=== PATIENT | male | born 1950 | race Caucasian/White ===

== ENCOUNTER → 2019-12-28 16:29 | Outpatient (CLI) | payer MEDICARE, SELFPAY ==
--- NOTE | 2019-12-28 16:49 | DI.RAD.S_ITS ---
PROCEDURE: XR LUMBAR SPINE 2-3V INDICATIONS: LOW BACK PAIN TECHNIQUE: 3 views of the lumbar spine were acquired. COMPARISON: None. FINDINGS: Bones: 5 jtg-beo-bbmydob vertebrae are present. There is normal bony alignment. No vertebral body compression fractures. No suspicious bony lesions. Degenerative disc disease is moderately severe along the lumbosacral spine including the thoracolumbar junction, and facet osteoarthritis also is moderately severe and most pronounced over the lower half of the LS spine. Soft tissues: Overlying bowel gas pattern is normal. No suspicious soft tissue calcifications. IMPRESSION: Moderately severe to severe degenerative disc disease and facet osteoarthritis overall. No recent trauma found. Dictated by: Brown Llanes M.D. on 12/28/2019 at 17:38 Approved by: Brown Llanes M.D. on 12/28/2019 at 17:42
== END ==
PROVIDERS: PCP Family Medicine; Referring Provider Physician Assistant; Visit Provider Physician Assistant
DX: M54.5 Low back pain (principal); M51.37 Other intervertebral disc degeneration, lumbosacral region; M51.35 Other intervertebral disc degeneration, thoracolumbar region; M47.817 Spondylosis without myelopathy or radiculopathy, lumbosacral region
CPT/HCPCS: 72100

== ENCOUNTER → 2020-12-29 10:51 | Outpatient (CLI) | payer MEDICARE, SELFPAY ==
--- NOTE | 2020-12-29 | DI.MRI.S_ITS ---
PROCEDURE: MR LUMBAR SPINE WO CON INDICATIONS: Low back pain TECHNIQUE: Noncontrast sagittal T1 spin echo and T2 fast echo, sagittal STIR, axial T1 and T2 fast spin echo through the lumbar spine. In cases with scoliosis, additional coronal T2 fast spin echo may be performed. COMPARISON: [facility], CR, XR LUMBAR SPINE 2-3V, 12/28/2019, 16:53. FINDINGS: Image quality: Excellent. Alignment and Curvature: There is mild L1-L2, L2-L3 and L3-L4 retrolisthesis. There is trace T12-L1 retrolisthesis. Bones: Vestigial 12th ribs noted. Reactive endplate changes noted adjacent to the T12-L1, L1-L2, L2-L3, L3-L4 and L4-L5 discs. No acute vertebral body compression fractures. Spinal Cord: Conus medullaris terminates at the T12 level. Visualized cord demonstrates normal signal and size. Paraspinous Soft Tissues: No paravertebral masses. T12-L1: Loss of disc signal and height. Moderate, diffuse disc bulge. Small right central disc protrusion. Mild narrowing of the central canal. Mild right neural foraminal narrowing. No neural compression. L1-L2: Loss of disc signal and height. Minimal, diffuse disc bulge. Mild bilateral facet hypertrophy. Mild narrowing of the central canal. Mild to moderate bilateral neural foraminal narrowing. No neural compression. L2-L3: Loss of disc signal and height. Mild to moderate diffuse disc bulge. Qygu-jt-cmkcwojm facet hypertrophy. Moderate ligamentum flavum hypertrophy. Severe narrowing of the central canal with compression of the nerve roots of the cauda equina. Moderate right and severe left neural foraminal narrowing with compression of the exiting left L2 nerve root. L3-L4: Loss of disc signal and slight loss of disc height. Moderate, diffuse disc bulge. Xiyb-un-geljmnpe bilateral facet hypertrophy. Severe ligamentum flavum hypertrophy. Severe narrowing of the central canal with compression of the nerve roots of the cauda equina. Moderate right and severe left neural foraminal narrowing with compression of the exiting left L3 nerve root. L4-L5: Loss of disc signal and height. Moderate, diffuse disc bulge. Moderate facet hypertrophy. Moderate ligamentum flavum hypertrophy. Moderate to severe narrowing of the central canal with crowding of the nerve roots of the cauda equina. Severe bilateral neural foraminal narrowing with compression of the exiting L4 nerve roots. L5-S1: Loss of disc signal. Minimal, diffuse disc bulge. Mild bilateral facet hypertrophy. No central stenosis. Mild bilateral neural foraminal narrowing. No neural compression. IMPRESSION: 1. Multilevel degenerative disc disease. 2. Multilevel facet arthropathy. 3. Severe L2-L3 and L3-L4 central canal narrowing with compression of the nerve roots of the cauda equina. Moderate to severe L4-L5 central canal narrowing with crowding of the nerve roots of the cauda equina. 4. Severe bilateral L4-L5 neural foraminal narrowing with compression of the exiting bilateral L4 nerve roots. Severe left L2-L3 and L3-L4 neural foraminal narrowing with compression of the exiting left L2 and L3 nerve roots. Dictated by: Nuzhat Almonte MD, PhD on 12/29/2020 at 15:34 Approved by: Nuzhat Almonte MD, PhD on 12/29/2020 at 15:41
== END ==
PROVIDERS: PCP Family Medicine; Referring Provider Family Medicine; Visit Provider Family Medicine
DX: M54.5 Low back pain (principal); M51.36 Other intervertebral disc degeneration, lumbar region; M47.816 Spondylosis without myelopathy or radiculopathy, lumbar region; M47.817 Spondylosis without myelopathy or radiculopathy, lumbosacral region; M48.061 Spinal stenosis, lumbar region without neurogenic claudication; M48.07 Spinal stenosis, lumbosacral region
CPT/HCPCS: 72148

== ENCOUNTER → 2021-11-30 08:57 | Outpatient (CLI) | payer MEDICARE, SELFPAY ==
[2021-11-30 18:59] LABS: Alanine Aminotransferase 27 IU/L (<50); Albumin Globulin Ratio 1.3 (1.0-2.8); Alkaline Phosphatase 85 U/L (38-126); Aspartate Aminotransferase 48 IU/L (17-59); BUN Creatinine Ratio 16.9 (6-22); Bilirubin Total 0.8 mg/dL (0.2-1.3); Blood Urea Nitrogen 21 mg/dL (9-20); Calcium 9.8 mg/dL (8.4-10.2); Carbon Dioxide 31 mmol/L (22-32); Chloride 103 mmol/L (98-107); Cholesterol 177 mg/dL (140-199); Estimated Glomerular Filt Rate 57.1 mL/min (>60); Globulin 3.1 g/dL (1.7-4.1); Glucose 90 mg/dL (80-110); HDL Cholesterol 45 mg/dL (40-60); HEMOLYSIS 16 (0-50); LDL Cholesterol Calculated 112 mg/dL (<100); Potassium 3.5 mmol/L (3.4-5.1); Sodium 140 mmol/L (137-145); Total Protein 7.1 g/dL (6.3-8.2); Triglycerides 98 mg/dL (35-150)
[2021-11-30 19:09] LABS: Add Manual Diff / Slide Review NO; Basophils Absolute Auto 100 /uL (0-100); Basophils Percent Auto 1.4 % (0-2); Eosinophils Absolute Auto 0 /uL (0-450); Eosinophils Percent Auto 0.8 % (2-4); Hematocrit 47.7 % (41-53); Lymphocytes Absolute Auto 1400 /uL (1100-4500); Mean Corpuscular HGB Conc 33.6 % (30-36); Mean Corpuscular Hemoglobin 29.1 PG (26-34); Mean Corpuscular Volume 86.6 fL (80-100); Monocytes Absolute Auto 700 /uL (0-900); Monocytes Percent Auto 11.5 % (3-14); Neutrophils Absolute Auto 3900 /uL (1500-7000); Neutrophils Percent Auto 63.3 % (50-75); Platelet Count 179 X10^3/uL (150-400); Red Cell Distribution Width 15.1 % (11.6-14.8); White Blood Cell Count 6.1 X10^3/uL (4.5-11.0)
== END ==
PROVIDERS: PCP Physician Assistant; Visit Provider Physician Assistant
DX: I10 Essential (primary) hypertension (principal); N52.9 Male erectile dysfunction, unspecified; Z13.220 Encounter for screening for lipoid disorders
CPT/HCPCS: 80053; 80061; 85025

== ENCOUNTER → 2021-12-07 08:09 | Outpatient (CLI) | payer MEDICARE, SELFPAY ==
[2021-12-08 12:13] LABS: Hepatitis B Surface Antigen NEGATIVE s/c (NEGATIVE)
[2021-12-08 12:33] LABS: HIV 1 & 2 Ab/Ag 4th Gen Combo NEGATIVE (NEGATIVE); Hep C Virus Ab w/Reflex Quant NEGATIVE s/c (NEGATIVE)
== END ==
PROVIDERS: PCP Physician Assistant; Visit Provider Family Medicine
DX: Z77.21 Contact with and (suspected) exposure to potentially hazardous body fluids (principal); W46.1XXA Contact with contaminated hypodermic needle, initial encounter
CPT/HCPCS: 86803; 87340; 87389

== ENCOUNTER → 2023-09-19 15:55 | Outpatient (CLI) | payer MEDICARE, SELFPAY ==
--- NOTE | 2023-09-19 16:11 | DI.RAD.S_ITS ---
PROCEDURE: XR KNEE LT 3V INDICATIONS: left knee pain TECHNIQUE: 3 views of the knee were acquired. COMPARISON: None. FINDINGS: Bones: Typb-si-tfkhxehn degenerative changes, particularly the medial compartment. No acute displaced fracture or dislocation Possible nonacute appearing proximal fibular deformity. Soft tissues: Patellar enthesopathy. Joint effusion. IMPRESSION: Qctb-gf-zxpfzozg degenerative changes. Patellar enthesopathy and joint effusion. If there is high concern for further derangement, consider MRI evaluation. Dictated by: Igor Jarrett M.D. on 09/19/2023 at 17:14 Approved by: Igor Jarrett M.D. on 09/19/2023 at 17:15
== END ==
PROVIDERS: PCP Physician Assistant; Referring Provider Family Medicine; Visit Provider Family Medicine
DX: M25.562 Pain in left knee (principal); M76.9 Unspecified enthesopathy, lower limb, excluding foot; M25.462 Effusion, left knee
CPT/HCPCS: 73562

== ENCOUNTER → 2023-10-20 18:27 | Outpatient (CLI) | payer MEDICARE, SELFPAY ==
--- NOTE | 2023-10-20 | DI.MRI.S_ITS ---
PROCEDURE: MR KNEE LT WO CON INDICATIONS: Unspecified internal derangement of left knee TECHNIQUE: Noncontrast sagittal PD fast spin echo and T2 fast spin echo with fat saturation, sagittal 3-D FLASH with fat saturation; coronal T1 spin echo and PD fast spin echo with fat saturation, and axial PD fast spin echo with fat saturation through the knee. COMPARISON: [facility], CR, XR KNEE LT 3V, 09/19/2023, 16:22. FINDINGS: Image quality: Excellent. Menisci: Medial and lateral meniscal extrusions. There is complex tear of the posterior horn and body of the medial meniscus. There is a 0.5 cm parameniscal cyst adjacent to the posterior horn. There is complex tear of the anterior horn body of the lateral meniscus.. The meniscal root ligaments appear intact. Cruciate ligaments: The posterior cruciate ligament is intact. There is mucoid degeneration of anterior cruciate ligament. Medial structures: There is grade II sprain of proximal medial collateral ligament. The posterior oblique ligament, semimembranosus tendon insertions, oblique popliteal ligament, and meniscocapsular junction appear intact. Visualized portions of the pes anserinus tendons appear normal. No abnormal bursal fluid. Lateral structures: The lateral collateral ligament, long and short heads of the biceps femoris tendon appear intact. The popliteus tendon appears normal; the popliteofibular ligament appears intact. The posterosuperior and anteroinferior popliteomeniscal fascicles appear intact. The arcuate and fabellofibular ligaments appear intact, on either side of the lateral inferior geniculate artery. Iliotibial band appears normal. Anterior structures: The quadriceps and patellar tendons appear intact. Low-grade quadriceps tendinosis and patellar tendinosis. Patellar alignment is normal. No femoral trochlear dysplasia or ventral trochlear prominence. No edema in the infrapatellar fat pad. Bones and cartilage: No displaced fractures. There is prominent marrow edema in the posterior lateral tibial plateau, consistent with bone contusion. Bone contusion is also seen in the medial femoral condyle and medial tibial plateau. There is mild tricompartmental cartilage thinning and fibrillation. Joint space: There is small knee joint effusion. There is a moderate-sized Greene's cyst. Normal appearing synovial plicae are incidentally noted. IMPRESSION: 1. Complex tear of the posterior horn body of the medial meniscus. 2. Complex tear of the anterior horn body of the lateral meniscus. 3. Grade II sprain of MCL. 4. Mucoid degeneration of ACL. 5. Bone contusions involving the medial femoral condyle, medial tibial plateau and lateral tibial plateau. 6. Mild tricompartmental cartilage thinning and fibrillation. 7. Small knee joint effusion. 8. A moderate-sized Greene's cyst. Dictated by: Savage Alvarado M.D. on 10/21/2023 at 8:34 Approved by: Savage Alvarado M.D. on 10/21/2023 at 8:45
== END ==
PROVIDERS: PCP Physician Assistant; Referring Provider Family Medicine; Visit Provider Family Medicine
DX: S83.232A Complex tear of medial meniscus, current injury, left knee, initial encounter (principal); S83.272A Complex tear of lateral meniscus, current injury, left knee, initial encounter; S83.412A Sprain of medial collateral ligament of left knee, initial encounter; S80.02XA Contusion of left knee, initial encounter; M25.462 Effusion, left knee; M71.22 Synovial cyst of popliteal space [Baker], left knee; M23.92 Unspecified internal derangement of left knee
CPT/HCPCS: 73721

== ENCOUNTER → 2023-12-01 11:38 | Outpatient (CLI) | payer MEDICARE, SELFPAY ==
--- NOTE | 2023-12-01 13:15 | DI.MRI.S_ITS ---
PROCEDURE: MR STROKE Pre- and post-contrast brain MRI, non-contrast brain MR angiogram, pre- and postcontrast neck MR angiogram INDICATIONS: Transient cerebral ischemic attack, unspecified TECHNIQUE: Brain: Noncontrast axial T1 spin echo, axial T2 fast spin echo, sagittal and axial FLAIR, coronal T2 fast spin echo, axial gradient echo, axial diffusion and ADC through the brain. After the administration of contrast, axial 3D VIBE of the cranial vasculature and brain. Brain MRA: Non-contrast 3-D time of flight MR angiogram, with multiple ucwaymc-tbsfuoqhy-hcthsgyanf (MIP) reformats performed. Neck MRA: Axial and sagittal TruFISP through the neck. Coronal dynamic MR angiogram during administration of contrast in the arterial and venous phases, with 3-dimenstional kpbcdlh-ivxrjqntx-fhyoarhdps (MIP) reformats constructed from subtraction images. COMPARISON: None. FINDINGS: Image quality: Excellent. BRAIN: CSF spaces: Ventricles are normal in size and shape. Basal cisterns are patent. No extra-axial fluid collections. Brain: No intracranial bleeds or mass effects. Clements-white matter interface is normal. Diffusion weighted images show no acute infarct. Brainstem appears normal. Normal intravascular flow voids are present. No abnormal intracranial enhancement. Mild atrophy and moderate multifocal and confluent white matter chronic ischemic change Skull and face: Calvarial marrow signal is normal. Orbits appear normal. Sinuses: Sinuses and mastoids are clear. BRAIN MR ANGIOGRAM: Anterior circulation: Intracranial internal carotid arteries are normal in size and enhancement. The flow within the paired anterior cerebral arteries is normal and symmetric. The flow within the middle cerebral arteries is normal and symmetric. The anterior communicating artery is seen. No stenoses, occlusions, or aneurysms. Posterior circulation: Left vertebral artery dominance. Degenerative right vertebral artery terminates in the posterior inferior cerebellar artery. Hypoplasia/aplasia of the left P1 RIGHT OF WAY WORKER noted. The P2 segment is supplied by a widely patent posterior communicating artery. Remainder of the distal vasculature unremarkable.6 NECK MR ANGIOGRAM: Carotids: Great vessels demonstrate a conventional anatomy as they arise from the aortic arch. The origins of the common carotid arteries appear patent. The calibers and courses of both common carotid arteries are normal. The bifurcation regions appear normal bilaterally. The internal carotid arteries demonstrate normal course and caliber. Posterior circulation: The origins of the vertebral arteries appear patent. More superior portions of both vertebral arteries demonstrate normal course and caliber, and join to form a normal appearing basilar artery. Miscellaneous: Subclavian arteries appear patent. Pre-contrast images through the neck show no soft tissue abnormalities. IMPRESSION: Atrophy and moderate white matter chronic ischemic change without acute infarct, hemorrhage or mass lesion. Unremarkable MR angiogram of the head and neck without large vessel occlusion, aneurysm or vascular malformation. Incidental at least moderate cervical spine central stenosis C5-6 and C6-7. Consider follow-up MR cervical spine Approved by: Lawson Umaña M.D. on 12/01/2023 at 18:52
== END ==
PROVIDERS: PCP Physician Assistant; Referring Provider Family Medicine; Visit Provider Family Medicine
DX: G45.9 Transient cerebral ischemic attack, unspecified (principal); M48.02 Spinal stenosis, cervical region
CPT/HCPCS: 70548; 70553; A9579

== ENCOUNTER → 2023-12-17 11:53 | Outpatient (CLI) | payer MEDICARE, SELFPAY ==
--- NOTE | 2023-12-17 | DI.MRI.S_ITS ---
PROCEDURE: MR CERVICAL SPINE WO CON INDICATIONS: Spinal stenosis, cervical region TECHNIQUE: Noncontrast sagittal T1 spin echo and T2 fast spin echo, sagittal STIR, foraminal oblique sagittal T2 fast spin echo, and axial gradient echo or T2 fast spin echo through the cervical spine. COMPARISON: None. FINDINGS: Image quality: Excellent. Alignment and Curvature: Straightening and focal reversal the normal cervical lordosis centered at C4-C5. Grade 1 anterolisthesis of C3 on C4. Grade 1 retrolisthesis of C5 on C6. Bone Marrow: Multilevel degenerative endplate changes, most pronounced C6-C7. Marrow demonstrates normal overall signal. Spinal Cord: Visualized spinal cord has normal size and signal. No cerebellar tonsillar herniation. Paraspinous Soft Tissues: No paravertebral masses. Prevertebral soft tissues are normal in thickness. C2-C3: Disc desiccation. Mild central posterior disc osteophyte complex. No central canal stenosis. Facet and uncovertebral arthropathy. Mild right and no left neural foraminal stenosis. C3-C4: Disc desiccation and posterior disc osteophyte complex. Mild central canal stenosis. Facet and uncovertebral arthropathy. Moderate bilateral neural foraminal stenosis. C4-C5: Disc desiccation height loss. Posterior disc osteophyte complex. Mild central canal stenosis. Facet and uncovertebral arthropathy. Moderate bilateral neural foraminal stenosis. C5-C6: Disc desiccation and posterior disc osteophyte complex. Moderate to severe central canal stenosis. Facet and uncovertebral arthropathy. Severe bilateral neural foraminal stenosis. C6-C7: Severe disc desiccation height loss. Posterior disc osteophyte complex. Severe central canal stenosis. Facet and uncovertebral arthropathy. Severe bilateral neural foraminal stenosis. C7-T1: Disc desiccation. No central canal stenosis. Facet and uncovertebral arthropathy. Moderate bilateral neural foraminal stenosis. IMPRESSION: 1. Multilevel degenerative changes of the cervical spine as described above. 2. There is severe central canal stenosis at C6-C7 and moderate to severe central canal stenosis at C5-C6. 3. Severe bilateral neural foraminal stenosis at C5-C6 and C6-C7. Dictated by: Saroj Mendoza M.D. on 12/17/2023 at 13:30 Approved by: Saroj Mendoza M.D. on 12/17/2023 at 13:34
== END ==
PROVIDERS: PCP Family Medicine; Referring Provider Family Medicine; Visit Provider Family Medicine
DX: M48.02 Spinal stenosis, cervical region (principal); M47.812 Spondylosis without myelopathy or radiculopathy, cervical region
CPT/HCPCS: 72141

== ENCOUNTER → 2024-01-28 10:13 | Outpatient (CLI) | payer MEDICARE, SELFPAY ==
--- NOTE | 2024-01-28 10:16 | DI.CT.S_ITS ---
PROCEDURE: CT CERVICAL SPINE WO CON INDICATIONS: spondylosis with radiculopathy, cervical region TECHNIQUE: Noncontrast 3 mm thick sections acquired from the skull base to the T4 level. Sagittal and coronal reformats were then constructed. For radiation dose reduction, the following was used: automated exposure control, adjustment of mA and/or kV according to patient size. COMPARISON: None. FINDINGS: Image quality: Excellent. Bones: No fractures or dislocations. Visualized superior ribs are intact. There is mild reversal cervical curvature with apex at C5. There is trace anterolisthesis of C3 on C4, trace retrolisthesis of C5 on C6, C6 on C7. Severe degenerative disc space narrowing is present of C6-7, moderate to severe at C4-5, C5-6. Multilevel anterior osteophytes are present most severe at C5 and C6. Multilevel posterior disc osteophyte complexes are present throughout the cervical spine. There is mild spinal stenosis C3-4, moderate C4-5, moderate to severe C5-6, severe C6-7. Mild right foraminal narrowing C2-3, severe left C3-4, severe left, moderate to severe right C4-5, moderate to severe bilateral, right greater than left, moderate bilateral C6-7. Prominent multilevel uncovertebral hypertrophy is present. Soft tissues: Prevertebral soft tissues are normal in thickness. No paravertebral hematomas. No apical pneumothoraces. IMPRESSION: Cysts multilevel degenerative disc bulges, spinal stenosis and foraminal narrowing. Spinal stenosis is most severe at C6-7 predominantly secondary to disc osteophyte complex with contributing effect of facet/ligamentum flavum arthropathy. Multilevel moderate to severe foraminal narrowing are present most prominent at C3-4, C4-5 secondary to uncovertebral arthropathy. Dictated by: Martina Ponce M.D. on 01/28/2024 at 13:26 Approved by: Martina Ponce M.D. on 01/28/2024 at 13:35
== END ==
LOC: CT 10:14
PROVIDERS: PCP Family Medicine; Referring Provider Neurological Surgery; Visit Provider Neurological Surgery
DX: M47.22 Other spondylosis with radiculopathy, cervical region (principal); M48.02 Spinal stenosis, cervical region; M50.10 Cervical disc disorder with radiculopathy, unspecified cervical region
CPT/HCPCS: 72125

== ENCOUNTER → 2025-07-26 09:42 | Outpatient (CLI) | payer MEDICARE, SELFPAY ==
--- NOTE | 2025-08-05 21:42 | DI.NM.S_ITS ---
DATE OF SERVICE: 08/05/2025 PROCEDURE: Pharmacological perfusion study. INDICATIONS: New-onset left bundle branch block, hypertension. RADIOPHARMACEUTICAL: 25.7 millicuries technetium-99m Myoview IV was injected at stress and 22.9 millicuries technetium-99m Myoview IV was injected at rest. CARDIAC STRESS: The patient underwent IV Lexiscan perfusion study under the supervision of an attending staff using standard intravenous Lexiscan as per protocol. Baseline rhythm sinus with underlying left bundle-branch block. During stress, no new convincing ischemic changes seen. No significant arrhythmias other than baseline left bundle-branch block. No chest pain. The patient remained hemodynamically stable. Resting blood pressure of 136/86. RAW DATA: There is an increased subdiaphragmatic activity. GATED STUDY: Resting LV ejection fraction 53 and stress LV ejection fraction 60% without any obvious wall motion abnormalities. Resting end- diastolic volume 155 mL. TID ratio 1.09, which is within normal limits. Lung/heart ratio 0.20, which is within normal limits. MYOCARDIAL PERFUSION SCAN: Stress supine, resting supine and stress prone images were compared to each other. There appears to be predominantly fixed moderate size, moderate to severely decreased perfusion of mid to distal anterior septum without any significant perfusion defect of the rest of the wall. Normal myocardial perfusion in LAD territory otherwise. Summed stress score and summed rest score 5 with summed difference score 0. CONCLUSION: 1. No obvious reversible ischemia. 2. Predominantly fixed mid to distal anteroseptal defect, as stated above, with underlying left bundle-branch block sparing anterior wall and anterior apex. Hence, most likely due to underlying left bundle- branch block, instead of left anterior artery disease. Stress LV ejection fraction 60%. Overall low-risk myocardial perfusion scan. Summed stress score 5, summed rest score 5 with summed difference score of 0. Correlate clinically. Rishi Mcneal - MINH/aye/AY doc#: [id number]/job#: [id number] dd: 08/05/2025 16:51:00 dt: 08/05/2025 20:49:00 DICTATING MD/COPIES TO: Lb Villavicencio MD COPIES MNE: [place];
== END ==
PROVIDERS: PCP Family Medicine; Referring Provider Internal Medicine Cardiovascular Disease; Visit Provider Internal Medicine Cardiovascular Disease
DX: I44.7 Left bundle-branch block, unspecified (principal); I10 Essential (primary) hypertension
CPT/HCPCS: 78452; 93016; 93017; 93018; A9502; J2785

== ENCOUNTER → 2025-10-17 15:33 | Outpatient (CLI) | payer MEDICARE, SELFPAY | PROVIDERS: PCP Family Medicine; Referring Provider Urology; Visit Provider Urology | DX: R39.9 Unspecified symptoms and signs involving the genitourinary system (principal) | CPT/HCPCS: 87077; 87086 ==